=== PATIENT | female | born 1935 | race Caucasian/White ===

== ENCOUNTER 2018-10-10 16:10 | Emergency (ER) | payer MEDICARE ==
[~2018-10-10] VITALS: Ht 170.2 cm; Wt 71.4 kg
--- NOTE | 2018-10-10 16:48 | NUR ---
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
--- NOTE | 2018-10-10 16:50 | NUR ---
pt roomed from lobby
[2018-10-10 17:53] LABS: BASOPHILS # (AUTO) 0.05 x10^3/uL (0-0.1); BASOPHILS % (AUTO) 1 % (0-1); EOSINOPHILS # (AUTO) 0.21 x10^3/uL (0-0.4); EOSINOPHILS % (AUTO) 3 % (1-7); LYMPHOCYTES # (AUTO) 1.19 x10^3/uL (1-3.4); LYMPHOCYTES % (AUTO) 16 % (22-44); MD NO; MEAN CORPUSCULAR HEMOGLOBIN 30.2 pg (27.0-34.8); MEAN CORPUSCULAR HGB CONC 33.6 g/dL (32.4-35.8); MEAN CORPUSCULAR VOLUME 90.1 fL (80-100); MEAN PLATELET VOLUME 9.2 fL (7.4-10.4); MONOCYTES # (AUTO) 0.81 x10^3/uL (0.2-0.8); MONOCYTES % (AUTO) 11 % (2-9); NEUTROPHILS # (AUTO) 5.03 x10^3/uL (1.8-6.8); NEUTROPHILS % (AUTO) 69 % (42-75); PLATELET COUNT 262 x10^3/uL (130-400); RED BLOOD COUNT 4.67 x10^6/uL (3.82-5.3); RED CELL DISTRIBUTION WIDTH 14.4 % (9.6-15.2)
[2018-10-10 18:04] LABS: CHLORIDE 97 mmol/L (98-107)
[2018-10-10 18:14] LABS: ALANINE AMINOTRANSFERASE 18 U/L (12-78); ALBUMIN 3.5 g/dL (3.4-5.0); ALKALINE PHOSPHATASE 17 U/L (45-117); ANION GAP 10 mmol/L (5-15); CALCIUM 8.7 mg/dL (8.5-10.1); CREATININE 0.65 mg/dL (0.55-1.02); TOTAL PROTEIN 7.2 g/dL (6.4-8.2); TROPONIN I < 0.015 ng/mL (0.000-0.045)
--- NOTE | 2018-10-10 18:20 | NUR ---
PT MEDICATED FOR HIGH BLOOD PRESSURE
--- NOTE | 2018-10-10 18:20 | NUR ---
ULTRASOUND AT BEDSIDE
[2018-10-10 18:25] LABS: MICROSCOPIC INDICATED
[2018-10-10 18:38] LABS: CULTURE INDICATED? NO
--- NOTE | 2018-10-10 20:12 | NUR ---
PT'S CHART UP FOR RECHECK
--- NOTE | 2018-10-10 20:49 | NUR ---
BEDSIDE REPORT FROM KENA NEW, PT CARE ASSUMED AT THIS TIME. PT IN BED, NAD, NO NEEDS AT THIS TIME, AWAITING DC AFTER MD ASSESSMENT. JW.
[2018-10-10 21:00] VITALS: BP 139/66
== END 2018-10-10 21:02 | disposition home or self-care (01) ==
LOC: ED 20:01
DX: R55 Syncope and collapse (principal); R42 Dizziness and giddiness; I10 Essential (primary) hypertension; R51 Headache
CPT/HCPCS: 36415; 70450; 71045; 76770; 80053; 81001; 84484; 85025; 93005; 99284